=== PATIENT | female | born 1970 | race Hispanic/Latino ===

== ENCOUNTER 2017-12-26 08:35 | Outpatient (CLI) | payer OTHER ==
--- NOTE | 2017-12-29 12:39 | MMO ---
BILATERAL SCREENING MAMMOGRAM: Date: 12/26/17 HISTORY: Screening. COMPARISON: None. TECHNIQUE: Bilateral screening CC and MLO mammograms. This patient's mammogram was interpreted with the assistance of computer-aided detection. FINDINGS: There are benign-appearing calcifications in the right breast. Scattered fibroglandular densities. No suspicious mass, architectural distortion, or microcalcificati ons. IMPRESSION: BIRADS 2: Benign Finding(s) Continued annual mammographic screening is recommended. POS: [facility]
== END 2017-12-26 08:36 | disposition home or self-care (01) ==
LOC: SCSMAMMO 08:35
PROVIDERS: ATTEND Family Medicine
DX: Z12.31 Encounter for screening mammogram for malignant neoplasm of breast (principal)
CPT/HCPCS: 77067